=== PATIENT | female | born 2000 | race Caucasian/White ===

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

== ENCOUNTER 2024-03-15 04:18 | Outpatient (CLI) | payer BC, SELFPAY ==
[2024-03-15 08:26] LABS: Abs Immature Grans 0.05 10^3/uL (0.0-0.06); Absolute Basophil Count 0.08 10^3/uL (0.0-0.2); Absolute Lymphocyte Count 3.25 10^3/uL (1.2-3.4); Absolute Monocyte Count 0.67 10^3/uL (0.1-0.8); Basophils % 0.6 %; Eosinophils % 3.2 %; HGB 13.2 g/dL (11.2-15.7); Immature Grans % 0.4 %; Lymphocytes % 23.3 %; MCH 25.4 pg (27.0-33.0); MCHC 30.7 % (32.0-36.0); MCV 83 fL (80-95); MPV 10.1 fL (8.0-11.0); Monocytes % 4.8 %; Neutrophils % 67.7 %; Platelet Count 440 10^3/uL (130-400); RDW 15.2 % (11.7-14.6); WBC 13.93 10^3/uL (4.4-10.8)
[2024-03-15 08:27] LABS: Absolute Eosinophil Count 0.45 10^3/uL (0.0-0.7); Absolute Neutrophil Count 9.43 10^3/uL (1.2-6.7)
[2024-03-15 08:58] LABS: Hemoglobin A1C 5.8 % (<5.7)
[2024-03-15 09:14] LABS: ALT 26 U/L (14-59); AST 16 U/L (15-37); Albumin 3.7 g/dL (3.4-5.0); Alkaline Phosphatase 32 U/L (46-116); Anion Gap 7.9 mmol/L (3-11); BUN 14 mg/dL (7-18); Bilirubin, Total 0.22 mg/dL (0.2-1.0); CO2 28.1 mmol/L (21.0-32.0); Calcium 9.6 mg/dL (8.5-10.1); Chloride 105 mmol/L (98-107); Estimated GFR 80.68 (mL/min/1.73m2); Ferritin 25 ng/mL (8-252); Folate 16.7 ng/mL (8.6-20.0); Glucose 94 mg/dL (74-106); Potassium 4.1 mmol/L (3.5-5.1); Sodium 141 mmol/L (136-145); TSH 1.88 uIU/mL (0.36-3.74); Total Protein 8.3 g/dL (6.4-8.2); Vitamin B12 560 pg/mL (193-986); Vitamin D 25 Total 14.7 ng/mL (30-100)
[2024-03-15 09:48] LABS: Iron 23 ug/dL (50-170); Total Iron Binding Capacity 459 ug/dL (250-450); Transferrin Sat 5 % (15-50)
[2024-03-15 18:15] LABS: T3,Free 3.4 pg/mL (2.8-5.3)
== END 2024-03-15 04:19 | disposition home or self-care (01) ==
PROVIDERS: PCP Registered Nurse; Visit Provider Registered Nurse
DX: R53.83 Other fatigue (principal); R79.89 Other specified abnormal findings of blood chemistry; E66.9 Obesity, unspecified; Z00.00 Encounter for general adult medical examination without abnormal findings
CPT/HCPCS: 36415; 80053; 82306; 82607; 82728; 82746; 83036; 83540; 83550; 84439; 84443; 84481; 85025

== ENCOUNTER 2024-04-06 04:46 | Outpatient (CLI) | payer BC, SELFPAY ==
[2024-04-06 10:49] LABS: GTT Comment See Comments
[2024-04-06 20:43] LABS: FSH 7.7 mIU/mL (See Note); Prolactin 7.5 ng/mL (See Note)
[2024-04-10 22:43] LABS: 17-Hydroxyprogesterone <40 ng/dL
== END 2024-04-06 04:47 | disposition home or self-care (01) ==
LOC: LBO 04:47
PROVIDERS: PCP Registered Nurse; Visit Provider Obstetrics & Gynecology
DX: Z86.32 Personal history of gestational diabetes (principal); E66.9 Obesity, unspecified; N91.5 Oligomenorrhea, unspecified
CPT/HCPCS: 36415; 83498; 82951; 83001; 83002; 84146

== ENCOUNTER 2024-05-12 00:40 | Outpatient (CLI) | payer BC, SELFPAY ==
[2024-05-12 11:35] LABS: Abs Immature Grans 0.08 10^3/uL (0.0-0.06); Absolute Monocyte Count 0.65 10^3/uL (0.1-0.8); Basophils % 0.5 %; Eosinophils % 3.3 %; HGB 13.6 g/dL (11.2-15.7); Immature Grans % 0.5 %; Lymphocytes % 20.4 %; MCH 25.3 pg (27.0-33.0); MCHC 30.9 % (32.0-36.0); MCV 82 fL (80-95); MPV 10.1 fL (8.0-11.0); Monocytes % 3.9 %; Neutrophils % 71.4 %; Platelet Count 452 10^3/uL (130-400); RBC 5.38 10^6/uL (3.93-5.22); RDW-SD 44.8 fL; WBC 16.56 10^3/uL (4.4-10.8)
[2024-05-12 11:36] LABS: Absolute Basophil Count 0.08 10^3/uL (0.0-0.2); Absolute Eosinophil Count 0.55 10^3/uL (0.0-0.7); Absolute Lymphocyte Count 3.38 10^3/uL (1.2-3.4); Absolute Neutrophil Count 11.82 10^3/uL (1.2-6.7)
[2024-05-12 11:38] LABS: Hemoglobin A1C 5.9 % (<5.7)
[2024-05-12 11:58] LABS: HCG Quant, Pregnancy < 1 mIU/mL (1-3)
[2024-05-12 12:17] LABS: Iron 28 ug/dL (50-170); Total Iron Binding Capacity 456 ug/dL (250-450); Transferrin Sat 6 % (15-50)
[2024-05-12 12:19] LABS: ALT 33 U/L (14-59); AST 15 U/L (15-37); Albumin 3.9 g/dL (3.4-5.0); Alkaline Phosphatase 31 U/L (46-116); Anion Gap 10.3 mmol/L (3-11); BUN 13 mg/dL (7-18); Bilirubin, Total 0.32 mg/dL (0.2-1.0); CO2 27.7 mmol/L (21.0-32.0); Calcium 9.9 mg/dL (8.5-10.1); Calculated LDL 84 mg/dL (<100); Chloride 104 mmol/L (98-107); Cholesterol 159 mg/dL (<200); Estimated GFR 80.68 (mL/min/1.73m2); Ferritin 37 ng/mL (8-252); Glucose 86 mg/dL (74-106); HDL Cholesterol 54 mg/dL (40-60); Potassium 4.4 mmol/L (3.5-5.1); Sodium 142 mmol/L (136-145); TSH 1.75 uIU/mL (0.36-3.74); Total Protein 8.6 g/dL (6.4-8.2); Triglyceride 107 mg/dL (<150); Vitamin B12 711 pg/mL (193-986); Vitamin D 25 Total 18.7 ng/mL (30-100)
[2024-05-12 12:24] LABS: Folate > 20.0 ng/mL (8.6-20.0)
[2024-05-12 12:42] LABS: FREE T4 1.03 ng/dL (0.76-1.46)
[2024-05-12 18:05] LABS: T3,Free 3.8 pg/mL (2.8-5.3)
[2024-05-12 18:17] LABS: Estradiol 67 pg/mL (See Note); Progesterone 0.4 ng/mL (See Table)
[2024-05-12 18:53] LABS: LH 6.3 mIU/mL (See Note)
== END 2024-05-12 00:41 | disposition home or self-care (01) ==
PROVIDERS: Obstetrics & Gynecology; PCP Registered Nurse; Visit Provider Registered Nurse
DX: N97.9 Female infertility, unspecified (principal); E61.1 Iron deficiency; R53.83 Other fatigue; Z13.220 Encounter for screening for lipoid disorders; Z00.00 Encounter for general adult medical examination without abnormal findings; E66.9 Obesity, unspecified; R79.9 Abnormal finding of blood chemistry, unspecified; R79.89 Other specified abnormal findings of blood chemistry
CPT/HCPCS: 36415; 80053; 80061; 82306; 82607; 82670; 82728; 82746; 83002; 83036; 83540; 83550; 84144; 84439; 84443; 84481; 84702; 85025